=== PATIENT | female | born 1990 | race Caucasian/White ===

== ENCOUNTER 2017-07-23 14:16 | Inpatient (IN) | payer OTHER ==
[2017-07-23] VITALS (20 sets, daily range): BP systolic 109–150; BP diastolic 52–100; PULSE 85–106; RESP 16–18; TEMP 98–98.5
--- NOTE | 2017-07-23 15:34 | PD ---
HPI Chief Complaint VALLEJO, edema Date Seen: Jul 23, 2017 Time Seen: 15:24 Travel History International Travel<30 Days: No Contact w/Intl Traveler<30Days: No Known Affected Area: No History of Present Illness HPI Pt is a zafar 26y/o G1 @ 37.1wks. She has PNC with Dr. Tyson. She presents today with c/o VALLEJO and edema. She reports that she has a h/o HAs prior to and has sporadically had them during. She does not take tylenol b/c she tries to avoid taking anything in . She has had b/l LE edema for "many weeks". It has not worsened. She also states that her BPs have been climbing. Prepreg BP was 90s/60s. Last week she reports completing a 24hr urine collection and labs but ruled out for preE. She states that today her BPs have been 120-140/70-60s. She denies LOF, VB, ctx. +FM. She states that she is scheduled for a 1'cs for macrosomia. Weeks Gestation: 37 Para: 0 : 1 History Past Medical History Medical History: Denies Significant Hx Obstetric History Obstetric History 1. current Past Surgical History Surgical History: No Previous Surgery Family History Family History: Negative Social History Alcohol Use: No Tobacco Use: No Substance Abuse: No Allergies-Medications Narrative Medication none Review of Systems Except as stated in HPI: all other systems reviewed are Neg Physical Exam Vital Signs Date Time Temp Pulse Resp B/P (MAP) Pulse Ox O2 Delivery O2 Flow Rate FiO2 07/23/17 15:15 102 150/83 (105) 07/23/17 15:00 18 07/23/17 15:00 104 136/61 (86) Narrative General: well developed, well nourished, no acute distress HEENT: normocephalic atraumatic, extraocular movements intact, neck supple Abdomen: soft, gravid, nontender, nondistended Uterus: fundus term, EFW 7.5-8lbs Extremities: full range of motion, no clonus, brisk reflexes L>R Skin: normal coloration, no rashes, no suspicious skin lesions noted Neurologic: cranial nerves 2-12 grossly intact, normal muscle tone, normal gait Psychiatric: normal mood and affect, appropriate FHTs: 150s, +accels, no decels, moderate variability, reactive [place]: no ctx Cvx: deferred Data Data Vital Signs Reviewed: Yes Orders Orders Vital Signs (Adult) .ON ADMISSION (07/23/17 15:11) ^ Labor Status (07/23/17 15:11) Urinalysis - C+S If Indicated (07/23/17 15:11) ^ Non Stress Test (07/23/17 15:11) Cbc No Diff, Includes Plts (07/23/17 15:11) Comprehensive Metabolic Panel (07/23/17 15:11) Protein Creat Ratio, Random Ur (07/23/17 15:11) MDM Plan 26y/o G1 @ 37.1wks with elevated BPs -- triage 130-160/70-80s -- PIH labs sent Dispo: await labs but pt likely at least gHTN at term and would warrant delivery; recommend IOL given EFW <5000g Diagnosis Diagnosis: Primary Impression: 37 weeks gestation of Additional Impression: Elevated blood pressure affecting in third trimester, antepartum Checo Beckman MD Jul 23, 2017 15:34
[2017-07-23 15:44] LABS: BACTERIA, URINE MANY /hpf; BILIRUBIN, URINE NEG (NEG); BLOOD, URINE NEG (NEG); GLUCOSE,URINE 300 mg/dL (NEG); KETONE, URINE NEG (NEG); MUCUS URINE FEW /lpf (OCC); NITRITE,URINE NEG (NEG); PH, URINE 6.5 (5.0-8.5); SQUAMOUS EPITHELIAL CELL URINE 11 /hpf (0-5); URINE COLOR YELLOW (YELLW/STRAW); URINE LEUKOCYTE ESTERASE SMALL (NEG)
[2017-07-23 15:47] LABS: HEMATOCRIT 36.1 % (35.0-46.0); HEMOGLOBIN 12.3 GM/DL (11.6-15.3); MEAN CELL VOLUME 85.3 FL (80.0-100.0); MEAN CORPUSCULAR HEMOGLOBIN 29.1 PG (27.0-34.0); MEAN CORPUSCULAR HGB CONC 34.2 % (32.0-36.0); MEAN PLATELET VOLUME 9.3 FL (7.0-11.0); PLATELET COUNT 133 TH/MM3 (150-450); RED BLOOD COUNT 4.24 MIL/MM3 (4.00-5.30); RED CELL DISTRIBUTION WIDTH 13.5 % (11.6-17.2); WHITE BLOOD COUNT 10.2 TH/MM3 (4.0-11.0)
[2017-07-23 16:06] LABS: ALBUMIN 2.4 GM/DL (3.4-5.0); ALT (GPT) 22 U/L (10-53); AST (GOT) 17 U/L (15-37); BICARBONATE 22.5 MEQ/L (21.0-32.0); BLOOD UREA NITROGEN 8 MG/DL (7-18); CALCIUM 8.8 MG/DL (8.5-10.1); CHLORIDE 111 MEQ/L (98-107); CREATININE 0.56 MG/DL (0.50-1.00); GLOMERULAR FILTRATION RATE 130 ML/MIN (>89); GLUCOSE,RANDOM 86 MG/DL (74-106); SODIUM (NA) 142 MEQ/L (136-145)
[2017-07-23 16:08] LABS: ALKALINE PHOSPHATASE 135 U/L (45-117); TOTAL BILIRUBIN ADULT 0.4 MG/DL (0.2-1.0); TOTAL PROTEIN 6.3 GM/DL (6.4-8.2)
[2017-07-23] MEDS ORDERED: ACETAMINOPHEN 325 MG TAB PO ONE (17:00)
[2017-07-23] MEDS ORDERED: LACTATED RINGER'S 1000 ML INJ 1,000 ML IV PRN ×2 (17:03→18:40)
[2017-07-23] MEDS: LACTATED RINGER'S 1000 ML INJ 1,000 ML IV SCH (17:03)
[2017-07-23] MEDS ORDERED: LIDOCAINE HCL 1% 50 ML VIAL I-DERMAL PRN ×2 (17:15→18:45)
[2017-07-23] MEDS ORDERED: CITRIC ACID-SODIUM CITRATE LIQ 30 ML UDC PO SCH ×2 (17:15→18:45)
[2017-07-23] MEDS ORDERED: OXYTOCIN 30 UNITS-500ML PREMIX 500 ML IV ONE ×2 (17:15→18:45)
[2017-07-23] MEDS ORDERED: MINERAL OIL 10 ML VIAL TOPICAL PRN ×2 (17:15→18:45)
[2017-07-23] MEDS ORDERED: LIDOCAINE HCL 1% 50 ML VIAL INFIL PRN ×2 (17:15→18:45)
[2017-07-23] MEDS ORDERED: SODIUM CHLORID 0.9% 500 ML INJ 500 ML IV PRN ×2 (17:15→18:45)
[2017-07-23] MEDS ORDERED: SODIUM CHLOR 0.9% 1000 ML INJ 1,000 ML IV PRN ×2 (17:23→19:00)
[2017-07-23] MEDS ORDERED: PENICILLIN G POTASSIUM INJ 5,000,000 UNITS in SODIUM CHLORIDE 0.9% INJ 100 ML IV ONE (18:00)
[2017-07-23] MEDS ORDERED: LACTATED RINGER'S 1000 ML INJ 1,000 ML IV SCH ×2 (18:40)
[2017-07-23] MEDS ORDERED: ONDANSETRON ODT 4 MG TAB PO PRN (18:45)
[2017-07-23] MEDS ORDERED: CALCIUM GLUCONATE 10% 1 GM/10 ML VIAL IV PUSH PRN (18:45)
[2017-07-23] MEDS ORDERED: ONDANSETRON HCL 4 MG/2 ML VIAL IV PUSH PRN (18:45)
[2017-07-23] MEDS ORDERED: ACETAMINOPHEN 325 MG TAB PO PRN (18:45)
[2017-07-23] MEDS ORDERED: LABETALOL HCL 100 MG/20 ML VIAL IV PUSH PRN ×3 (18:45→19:00)
[2017-07-23] MEDS ORDERED: SODIUM CHLORIDE 0.9% FLUSH 10 ML FLUSH IV FLUSH PRN ×2 (18:45)
[2017-07-23] MEDS ORDERED: DOCUSATE SODIUM 100 MG CAP PO PRN (18:45)
[2017-07-23] MEDS: BETAMETHASONE SOD PHOS/ACETATE SUSP 30 MG/5 ML VIAL IM SCH (20:00)
[2017-07-23] MEDS ORDERED: DINOPROSTONE 10 MG VAG INSERT VAGINAL ONE (20:00)
[2017-07-23] MEDS ORDERED: ZOLPIDEM TARTRATE 5 MG TAB PO PRN (21:00)
[2017-07-23] MEDS ORDERED: SODIUM CHLORIDE 0.9% FLUSH 10 ML FLUSH IV FLUSH SCH ×2 (21:00)
[2017-07-23] MEDS ORDERED: PENICILLIN G POTASSIUM INJ 2,500,000 UNITS in SODIUM CHLORIDE 0.9% INJ 100 ML IV SCH (22:00)
[2017-07-23 22:20] LABS: BASOPHIL % 0.3 % (0.0-2.0); EOSINOPHIL % 0.2 % (0.0-4.0); HEMATOCRIT 35.2 % (35.0-46.0); HEMOGLOBIN 11.8 GM/DL (11.6-15.3); LYMPH % 13.1 % (9.0-44.0); LYMPHOCYTE # 1.5 TH/MM3 (1.0-4.8); MEAN CELL VOLUME 86.6 FL (80.0-100.0); MEAN CORPUSCULAR HEMOGLOBIN 29.1 PG (27.0-34.0); MEAN CORPUSCULAR HGB CONC 33.6 % (32.0-36.0); MEAN PLATELET VOLUME 9.2 FL (7.0-11.0); MONOCYTE # 0.7 TH/MM3 (0-0.9); NEUT % 80.4 % (16.0-70.0); PLATELET COUNT 120 TH/MM3 (150-450); RED BLOOD COUNT 4.06 MIL/MM3 (4.00-5.30); RED CELL DISTRIBUTION WIDTH 13.5 % (11.6-17.2); WHITE BLOOD COUNT 11.2 TH/MM3 (4.0-11.0)
[2017-07-23 22:47] LABS: ALBUMIN 2.4 GM/DL (3.4-5.0); AST (GOT) 16 U/L (15-37); BLOOD UREA NITROGEN 8 MG/DL (7-18); CALCIUM 9.1 MG/DL (8.5-10.1); CHLORIDE 110 MEQ/L (98-107); CREATININE 0.57 MG/DL (0.50-1.00); GLOMERULAR FILTRATION RATE 127 ML/MIN (>89); GLUCOSE,RANDOM 104 MG/DL (74-106); SODIUM (NA) 140 MEQ/L (136-145)
[2017-07-23 22:48] LABS: ALT (GPT) 24 U/L (10-53)
[2017-07-23 22:50] LABS: ALKALINE PHOSPHATASE 135 U/L (45-117); TOTAL BILIRUBIN ADULT 0.5 MG/DL (0.2-1.0); TOTAL PROTEIN 6.2 GM/DL (6.4-8.2)
[2017-07-24] VITALS (41 sets, daily range): BP systolic 109–152; BP diastolic 56–93; PULSE 66–157; RESP 16–20; TEMP 97.9–98.8
[2017-07-24 05:56] LABS: HEMATOCRIT 33.6 % (35.0-46.0); HEMOGLOBIN 11.2 GM/DL (11.6-15.3); MEAN CELL VOLUME 87.2 FL (80.0-100.0); MEAN CORPUSCULAR HEMOGLOBIN 29.1 PG (27.0-34.0); MEAN CORPUSCULAR HGB CONC 33.4 % (32.0-36.0); MEAN PLATELET VOLUME 9.2 FL (7.0-11.0); PLATELET COUNT 107 TH/MM3 (150-450); RED BLOOD COUNT 3.85 MIL/MM3 (4.00-5.30); RED CELL DISTRIBUTION WIDTH 13.5 % (11.6-17.2); WHITE BLOOD COUNT 9.2 TH/MM3 (4.0-11.0)
[2017-07-24 06:23] LABS: ALBUMIN 2.2 GM/DL (3.4-5.0); AST (GOT) 16 U/L (15-37); BLOOD UREA NITROGEN 8 MG/DL (7-18); CALCIUM 8.4 MG/DL (8.5-10.1); CREATININE 0.45 MG/DL (0.50-1.00); GLOMERULAR FILTRATION RATE 167 ML/MIN (>89); GLUCOSE,RANDOM 76 MG/DL (74-106)
[2017-07-24 06:24] LABS: BICARBONATE 23.2 MEQ/L (21.0-32.0); CHLORIDE 111 MEQ/L (98-107); SODIUM (NA) 142 MEQ/L (136-145)
[2017-07-24 06:27] LABS: ALKALINE PHOSPHATASE 120 U/L (45-117); ALT (GPT) 21 U/L (10-53); TOTAL BILIRUBIN ADULT 0.5 MG/DL (0.2-1.0); TOTAL PROTEIN 5.7 GM/DL (6.4-8.2)
--- NOTE | 2017-07-24 08:02 | PD.LABORPN ---
Subjective Subjective Mild cramping from the cervidil placement of cervidil was extremely painful and was removal today Objective Vital Signs Vital Signs Date Time Temp Pulse Resp B/P (MAP) Pulse Ox O2 Delivery O2 Flow Rate FiO2 07/24/17 07:23 97.9 07/24/17 07:23 16 07/24/17 07:22 84 152/83 (106) 07/24/17 07:00 78 132/72 (92) 07/24/17 06:15 16 07/24/17 06:00 79 130/71 (90) 07/24/17 05:15 16 07/24/17 05:00 66 130/70 (90) 07/24/17 04:00 72 109/56 (73) 07/24/17 03:00 70 114/59 (77) 07/24/17 02:15 16 07/24/17 02:00 87 125/74 (91) 07/24/17 01:00 80 113/66 (82) 07/24/17 00:15 18 07/24/17 00:00 79 119/65 (83) Objective not in the pelvis ROGERS developed cervix 80%/ft/-3 very painful to examine EFW 8+ pounds pelvis not yet proven Weeks Gestation: 37 Gest Age Assessed Date: Jul 24, 2017 Pt started active labor?: No Medical induction of labor?: Yes Medical induction start date: Jul 24, 2017 Medical induction start time: 07:59 Artificial rupture of membrane: No Assessment/Plan Problem List: (1) 37 weeks gestation of ICD Codes: Z3A.37 - 37 weeks gestation of Status: Acute (2) Elevated blood pressure affecting in third trimester, antepartum ICD Codes: O16.3 - Unspecified maternal hypertension, third trimester Status: Acute Assessment and Plan cervical ripening and induction for elevated blood pressures suspected macrosomia no gestational diabetes neither parent was macrosomic had primary section scheduled in [address] Tyson We reviewed induction and working toward vaginal delivery as ultrasounds can be off on weight. However clinically her fundus is 42 and the has not entered pelvis from above. If he cannot enter pelvis from above, he cannot come out from below. will proceed with pitocin but watch for lack of descent and evaluate accordingly. Radha Burleson MD Jul 24, 2017 08:02
[2017-07-24] MEDS ORDERED: OXYTOCIN 30 UNITS-500ML PREMIX 500 ML IV PRN ×3 (08:15→08:30)
[2017-07-24] MEDS ORDERED: MULTIVIT/MIN/PREN/FOL AC/IRON PRENATAL TAB PO SCH (09:00)
[2017-07-24] MEDS: LACTATED RINGER'S 1000 ML INJ 1,000 ML IV SCH (12:40)
[2017-07-24] MEDS ORDERED: MISOPROSTOL 100 MCG TAB PO SCH (18:00)
[2017-07-24] MEDS: MISOPROSTOL 25 MCG TAB PO SCH ×2 (19:04→23:02)
[2017-07-24] MEDS: BETAMETHASONE SOD PHOS/ACETATE SUSP 30 MG/5 ML VIAL IM SCH (20:00)
[2017-07-24] MEDS ORDERED: ZOLPIDEM TARTRATE 5 MG TAB PO ONE (21:00)
[2017-07-25] VITALS (10 sets, daily range): BP systolic 117–146; BP diastolic 69–89; PULSE 72–98; RESP 16–18; TEMP 97.8–98.1; O2SAT 95–96
[2017-07-25] MEDS: LACTATED RINGER'S 1000 ML INJ 1,000 ML IV SCH ×2 (01:24→07:27)
[2017-07-25 08:16] LABS: AUTOMATED NEUTROPHIL # 8.6 TH/MM3 (1.8-7.7); BASOPHIL % 0.2 % (0.0-2.0); EOSINOPHIL % 0.1 % (0.0-4.0); HEMATOCRIT 35.4 % (35.0-46.0); LYMPH % 12.8 % (9.0-44.0); LYMPHOCYTE # 1.4 TH/MM3 (1.0-4.8); MEAN CORPUSCULAR HEMOGLOBIN 29.2 PG (27.0-34.0); MEAN PLATELET VOLUME 9.1 FL (7.0-11.0); MONO % 6.4 % (0.0-8.0); MONOCYTE # 0.7 TH/MM3 (0-0.9); NEUT % 80.5 % (16.0-70.0); PLATELET COUNT 126 TH/MM3 (150-450); RED BLOOD COUNT 4.12 MIL/MM3 (4.00-5.30); RED CELL DISTRIBUTION WIDTH 13.6 % (11.6-17.2); WHITE BLOOD COUNT 10.6 TH/MM3 (4.0-11.0)
[2017-07-25 08:36] LABS: ALBUMIN 2.2 GM/DL (3.4-5.0); DIRECT BILIRUBIN ADULT 0.1 MG/DL (0.0-0.2)
[2017-07-25 08:38] LABS: INDIRECT BILIRUBIN 0.5 MG/DL (0.0-0.8); TOTAL BILIRUBIN ADULT 0.6 MG/DL (0.2-1.0); TOTAL PROTEIN 5.7 GM/DL (6.4-8.2)
[2017-07-25] MEDS ORDERED: LACTATED RINGER'S 1000 ML IV SCH (09:45)
[2017-07-25] MEDS ORDERED: LACTATED RINGER'S 1000 ML IV ONE (09:45)
[2017-07-25] MEDS ORDERED: CEFAZOLIN INJ 2,000 MG in SODIUM CHLORIDE 0.9% INJ 100 ML IV SCH (09:45)
[2017-07-25] MEDS ORDERED: CITRIC ACID-SODIUM CITRATE LIQ 30 ML UDC PO SCH (09:45)
[2017-07-25] MEDS ORDERED: ACETAMINOPHEN 1000 MG/100 ML 100 ML IV ONE (10:43)
[2017-07-25] MEDS ORDERED: MORPHINE SULFATE PF 5 MG/10 ML VIAL ONE (10:43)
[2017-07-25] MEDS ORDERED: DEXAMETHASONE SOD PHOS 4 MG/ML VIAL IV ONE (12:00)
[2017-07-25] MEDS ORDERED: ONDANSETRON HCL 4 MG/2 ML VIAL IV ONE (12:00)
[2017-07-25] MEDS ORDERED: OXYTOCIN 10 UNIT/ML AMP IV ONE (12:00)
[2017-07-25] MEDS ORDERED: LACTATED RINGER'S 1000 ML INJ 1,000 ML IV ONE (12:00)
[2017-07-25] MEDS ORDERED: KETOROLAC TROMETHAMINE 30 MG/ML (IVP) VIAL IV PUSH ONE (12:00)
--- NOTE | 2017-07-25 14:14 | MP ---
cc: Yogesh Morocho MD DATE OF OPERATION: 07/25/2017 DATE OF OPERATION: 07/25/2017 PREOPERATIVE DIAGNOSES: 1. Intrauterine at 37 weeks. 2. Atypical preeclampsia. 3. Inability to tolerate labor, remote from delivery. POSTOPERATIVE DIAGNOSES: 1. Intrauterine at 37 weeks. 2. Atypical preeclampsia. 3. Inability to tolerate labor, remote from delivery. PROCEDURE PERFORMED: Primary low transverse section. ANESTHESIA: Spinal. SURGEON: Yogesh Morocho MD FINDINGS: Normal uterus for . A beautiful female infant, Apgars 9 and 9, weight 8 pounds 9 ounces. Normal tubes, normal ovaries, and normal posterior cul-de-sac. COMPLICATIONS: None. COUNTS: Correct. ESTIMATED BLOOD LOSS: 600 mL. FLUIDS: Crystalloids. CONDITION: The patient tolerated the procedure well, went to the recovery room in good condition. INDICATION FOR PROCEDURE: This is a patient who came in with atypical preeclampsia with low platelets and we decided to induce because of the preeclampsia. Because her cervix was not ripe, we tried to do cervical ripening and the morning of surgery, she began having episodic late decelerations. The labor nurse called me. We reviewed the strip at 4:00 a.m. It had normalized and I told her not to give any more Cytotec, let the baby rest, let her sleep, as well as the strip looked good, we could do it in the morning. We rechecked her platelets because they were somewhat low and falling, they were normal and we decided to proceed with the surgery this morning. DESCRIPTION OF PROCEDURE: Under an adequate level of anesthesia, she was prepped and draped for abdominal surgery. A Pfannenstiel incision was made and carried down to the fascia. The fascia was taken off the rectus muscle by blunt and sharp dissection. The rectus muscles were spread bluntly and the peritoneum was entered under direct vision without difficulty. The incision was extended with care to avoid the urinary bladder. A bladder blade was placed and a bladder flap created in the usual fashion. The uterine incision was made in a transverse manner along the lower uterine segment which was not well-developed. It was taken down in the midline until the intrauterine cavity was entered. A large amount of clear fluid was noted. The vertex was grasped with a suction cup and delivered. The hypopharynx and nasopharynx were suctioned and the remainder of the delivered without difficulty. The cord was doubly clamped and cut and the infant handed to the resuscitation team present. The placenta was then delivered manually. The uterus was curettaged twice with a wet lap and irrigated with a large amount of fluid. The uterine incision was then repaired with 2-0 Vicryl in a running locking fashion, with the second layer imbricating the first. Hemostasis was excellent. The cul-de-sac and gutters were cleaned of blood and debris. The uterus was delivered back into the abdomen. The rectus muscles were reapproximated with 0 Vicryl in interrupted fashion. The fascia was repaired from lateral to midline with 0 Vicryl and the subcu was repaired with 3-0 Vicryl. The skin was repaired with a 4-0 Vicryl in a subcuticular manner. The wound was sterilely dressed. She tolerated the procedure well and went to the recovery room in satisfactory condition. R. Tyler Morocho MD RJV/KIN , 02:01 PM , 02:13 PM
[2017-07-25] MEDS ORDERED: oxyCODONE/ACETAMINOPHEN 5 MG/325 MG TAB PO PRN (16:15)
[2017-07-25] MEDS ORDERED: OXYTOCIN 30 UNITS-500ML PREMIX 500 ML IV ONE (16:15)
[2017-07-25] MEDS ORDERED: SODIUM CHLORIDE 0.9% FLUSH 10 ML FLUSH IV FLUSH PRN (16:15)
[2017-07-25] MEDS ORDERED: ACETAMINOPHEN 325 MG TAB PO PRN (16:15)
[2017-07-25] MEDS ORDERED: ZOLPIDEM TARTRATE 5 MG TAB PO PRN (16:15)
[2017-07-25] MEDS ORDERED: SODIUM CHLORIDE 0.9% FLUSH 10 ML FLUSH IV FLUSH SCH (21:00)
[2017-07-25] MEDS ORDERED: LACTATED RINGER'S 1000 ML INJ 1,000 ML IV SCH (21:01)
[2017-07-25] MEDS ORDERED: OXYTOCIN 30 UNITS-500ML PREMIX 500 ML IV PRN (21:15)
[2017-07-25] MEDS: IBUPROFEN 600 MG TAB PO PRN (22:19)
[2017-07-26 04:00] VITALS: BP 110/77; PULSE 68; RESP 16; TEMP 98; O2SAT 99
[2017-07-26 07:40] VITALS: BP 128/80; PULSE 81; RESP 16; TEMP 98
[2017-07-26 07:50] VITALS: BP 128/80; PULSE 81; RESP 16; TEMP 98
[2017-07-26] MEDS: oxyCODONE/ACETAMINOPHEN 5 MG/325 MG TAB PO PRN ×3 (07:55→21:38)
[2017-07-26 08:45] LABS: AUTOMATED NEUTROPHIL # 9.6 TH/MM3 (1.8-7.7); BASOPHIL % 0.2 % (0.0-2.0); EOSINOPHIL % 0.2 % (0.0-4.0); HEMATOCRIT 30.3 % (35.0-46.0); HEMOGLOBIN 10.1 GM/DL (11.6-15.3); LYMPHOCYTE # 1.7 TH/MM3 (1.0-4.8); MEAN CELL VOLUME 87.2 FL (80.0-100.0); MEAN CORPUSCULAR HEMOGLOBIN 29.1 PG (27.0-34.0); MEAN CORPUSCULAR HGB CONC 33.4 % (32.0-36.0); MEAN PLATELET VOLUME 9.3 FL (7.0-11.0); MONO % 7.4 % (0.0-8.0); MONOCYTE # 0.9 TH/MM3 (0-0.9); NEUT % 78.2 % (16.0-70.0); PLATELET COUNT 114 TH/MM3 (150-450); RED BLOOD COUNT 3.47 MIL/MM3 (4.00-5.30); RED CELL DISTRIBUTION WIDTH 13.6 % (11.6-17.2); WHITE BLOOD COUNT 12.2 TH/MM3 (4.0-11.0)
--- NOTE | 2017-07-26 10:48 | HHI.OB ---
Subjective Post Operative Day: 1 Remarks Doing well, Pain well controlled baby is good Bleeding is normal Objective Vitals/I&O Vital Signs Date Time Temp Pulse Resp B/P (MAP) Pulse Ox O2 Delivery O2 Flow Rate FiO2 07/26/17 07:50 98.0 81 16 07/26/17 07:50 128/80 (96) 07/26/17 07:40 98.0 81 07/26/17 07:40 128/80 (96) 07/26/17 07:40 16 07/26/17 04:00 98.0 68 16 110/77 (88) 99 07/25/17 23:52 98.0 98 18 120/78 (92) 96 07/25/17 20:00 98.0 79 18 117/69 (85) 95 07/25/17 18:00 78 16 143/86 (105) 07/25/17 13:55 72 18 146/89 (108) 07/25/17 13:55 98.1 Result Diagram: 07/26/17 0725 07/24/17 0449 Objective Remarks GENERAL: Well-nourished, well-developed patient. CARDIOVASCULAR: Regular rate and rhythm without murmurs, gallops, or rubs. RESPIRATORY: Breath sounds equal bilaterally. No accessory muscle use. ABDOMEN/GI: Abdomen soft, non-tender, bowel sounds present. Incision: Clean, dry and intact. Fundus: Firm, non-tender at umbilicus. GENITOURINARY: Light to moderate bleeding. EXTREMITIES: No cyanosis or edema, non-tender, without signs of DVT. Medications and IVs Current Medications Medications (Trade) Dose Ordered Sig/Prachi Route Start Time Stop Time Status Last Admin Lactated Ringer's 1,000 ml @ 100 mls/hr Q10H IV 07/25/17 21:01 07/26/17 17:00 Oxytocin 500 ml @ 100 mls/hr UNSCH X1 PRN IV 07/25/17 21:15 07/26/17 21:14 (NS Flush) 2 ml BID IV FLUSH 07/25/17 21:00 (NS Flush) 2 ml UNSCH PRN IV FLUSH 07/25/17 16:15 (Tylenol) 650 mg Q6H PRN PO 07/25/17 16:15 (Motrin) 600 mg Q6H PRN PO 07/25/17 16:15 07/25/17 22:19 (Percocet 5-325 Mg) 1 tab Q4H PRN PO 07/25/17 16:15 07/25/17 23:14 (Percocet 5-325 Mg) 2 tab Q4H PRN PO 07/25/17 16:15 07/26/17 07:55 (Ambien) 5 mg HS PRN PO 07/25/17 16:15 (M-M-R Ii Inj) 0.5 ml ONCE ONCE SQ 07/26/17 16:00 07/26/17 16:01 (Boostrix Inj) 0.5 ml ONCE ONCE IM 07/26/17 16:00 07/26/17 16:01 07/25/17 23:15 Assessment/Plan Problem List: (1) 37 weeks gestation of ICD Codes: Z3A.37 - 37 weeks gestation of Status: Acute (2) Elevated blood pressure affecting in third trimester, antepartum ICD Codes: O16.3 - Unspecified maternal hypertension, third trimester Status: Acute Assessment and Plan P0D #1 Preeclampsia BPs look good Anemia start fe after done with the percocet is done Routine care Yogesh Morocho MD Jul 26, 2017 10:48
[2017-07-26] MEDS ORDERED: IBUP-232 PO (10:50)
[2017-07-26] MEDS ORDERED: OXYC1TAB63 PO (10:50)
--- NOTE | 2017-07-26 10:51 | HHI.DCPOC ---
Discharge Care Plan Diagnosis: (1) Anemia (2) Preeclampsia (3) 37 weeks gestation of (4) Elevated blood pressure affecting in third trimester, antepartum Report Symptoms to Your Doctor -Temperature above 100.5 degrees -Redness, of incision or excessive or foul smelling drainage -Unusual pain or calf pain -Increased vaginal bleeding -Painful or difficulty urinating -Feelings of extreme sadness or anxiety after 2 weeks Goals to Promote Your Health * To prevent worsening of your condition and complications * To maintain your health at the optimal level Directions to Meet Your Goals Take your medications as prescribed Follow your dietary instruction Follow activity as directed Ensure plenty of rest for recovery Drink fluids for hydration Keep your appointments as scheduled Take your immunizations and boosters as scheduled If your symptoms worsen call your PCP, if no PCP go to Urgent Care Center or Emergency Room Smoking is Dangerous to Your Health. Avoid second hand smoke Call the 24-hour crisis hotline for domestic abuse at Yogesh Morocho MD Jul 26, 2017 10:51
[2017-07-26] MEDS: IBUPROFEN 600 MG TAB PO PRN ×2 (12:04→21:37)
[2017-07-26] MEDS ORDERED: DIPHTH/TETANUS/ACEL PERTUSSIS (BOOSTER) 0.5 ML VIAL/PFS IM ONE (16:00)
[2017-07-26] MEDS ORDERED: MEASLES, MUMPS, RUBELLA VACCINE 0.5 ML VIAL SQ ONE (16:00)
[2017-07-26 20:30] VITALS: BP 138/87; PULSE 98; RESP 16; TEMP 98.6; O2SAT 98
--- NOTE | 2017-07-27 07:58 | HHI.OB ---
Subjective Post Operative Day: 2 Remarks doing well,+BM, ready for discharge, pt states Dr Morocho already checked her incision today Objective Vitals/I&O Vital Signs Date Time Temp Pulse Resp B/P (MAP) Pulse Ox O2 Delivery O2 Flow Rate FiO2 07/26/17 20:30 98 16 138/87 (104) 98 07/26/17 20:30 98.6 Result Diagram: 07/26/17 0725 07/24/17 0449 Objective Remarks GENERAL: Well-nourished, well-developed patient. CARDIOVASCULAR: Regular rate and rhythm without murmurs, gallops, or rubs. RESPIRATORY: Breath sounds equal bilaterally. No accessory muscle use. ABDOMEN/GI: Abdomen soft, non-tender, bowel sounds present. Incision: Clean, dry and intact. Fundus: Firm, non-tender at umbilicus. GENITOURINARY: Light to moderate bleeding. EXTREMITIES: No cyanosis or edema, non-tender, without signs of DVT. Medications and IVs Current Medications Medications (Trade) Dose Ordered Sig/Prachi Route Start Time Stop Time Status Last Admin (NS Flush) 2 ml BID IV FLUSH 07/25/17 21:00 (NS Flush) 2 ml UNSCH PRN IV FLUSH 07/25/17 16:15 (Tylenol) 650 mg Q6H PRN PO 07/25/17 16:15 (Motrin) 600 mg Q6H PRN PO 07/25/17 16:15 07/26/17 21:37 (Percocet 5-325 Mg) 1 tab Q4H PRN PO 07/25/17 16:15 07/25/17 23:14 (Percocet 5-325 Mg) 2 tab Q4H PRN PO 07/25/17 16:15 07/26/17 21:38 (Ambien) 5 mg HS PRN PO 07/25/17 16:15 Assessment/Plan Problem List: (1) 37 weeks gestation of ICD Codes: Z3A.37 - 37 weeks gestation of Status: Acute (2) Elevated blood pressure affecting in third trimester, antepartum ICD Codes: O16.3 - Unspecified maternal hypertension, third trimester Status: Acute Assessment and Plan P0D #2 Preeclampsia BPs look good Anemia start fe after done with the percocet Routine care Discharge Planning routine Attending Attestation pt seen by Krystal Rondon MD Jul 27, 2017 07:58
[2017-07-27] MEDS: IBUPROFEN 600 MG TAB PO PRN (08:59)
[2017-07-27] MEDS: oxyCODONE/ACETAMINOPHEN 5 MG/325 MG TAB PO PRN (08:59)
[2017-07-27 09:10] VITALS: BP 133/86; PULSE 91; RESP 20; TEMP 98
== END 2017-07-27 13:00 | disposition home or self-care (01) | DRG 766 ==
LOC: HOBED 14:16 → H2EA 17:09 → H1EA 07-25 13:47
PROVIDERS: ADMIT Obstetrics & Gynecology; ATTEND Obstetrics & Gynecology
PROC: 10D00Z1 Extraction of Products of Conception, Low, Open Approach (ICD-10-PCS; principal; 2017-07-25)
DX: O14.94 Unspecified pre-eclampsia, complicating childbirth (principal); D64.9 Anemia, unspecified; O99.02 Anemia complicating childbirth; Z3A.37 37 weeks gestation of pregnancy; Z37.0 Single live birth
CPT/HCPCS: 36415; 59025; 76816; 76819; 80053; 80076; 80307; 81001; 82570; 84112; 84156; 84550; 85025; 85027; 86850; 86900; 86901; 87086; 90715; J0131; J0690; J1100; J1885; J2274; J2405; J2540; J2590; J7120

== ENCOUNTER 2017-07-31 11:49 | Inpatient (IN) | payer OTHER ==
[~2017-07-31] VITALS: Ht 162.6 cm; Wt 83.0 kg
[2017-07-31] VITALS (24 sets, daily range): BP systolic 106–147; BP diastolic 60–96; PULSE 83–110; RESP 14–18; TEMP 98; O2SAT 99
[~2017-07-31 11:49] MED LIST: IBUP-232 PO; OXYC1TAB63 PO
[2017-07-31] MEDS ORDERED: NIFEdipine 10 MG CAP ONE ×2 (14:12→14:45)
[2017-07-31] MEDS ORDERED: SODIUM CHLORIDE 0.9% FLUSH 10 ML FLUSH IV FLUSH PRN ×2 (14:15→15:15)
[2017-07-31] MEDS ORDERED: NIFEdipine 10 MG CAP PO PRN ×4 (14:15→15:45)
[2017-07-31] MEDS ORDERED: ACETAMINOPHEN 325 MG TAB PO PRN ×2 (14:15→15:15)
[2017-07-31] MEDS ORDERED: ALUMINUM/MAGNESIUM/SIMETH 30 ML CUP PO PRN (14:15)
[2017-07-31] MEDS ORDERED: ONDANSETRON HCL 4 MG/2 ML VIAL IV PUSH PRN ×2 (14:15→15:15)
[2017-07-31] MEDS ORDERED: MAGNESIUM SULFATE 4 GM PREMIX 100 ML IV ONE (14:15)
[2017-07-31] MEDS ORDERED: ONDANSETRON ODT 4 MG TAB PO PRN (14:15)
[2017-07-31] MEDS ORDERED: LABETALOL HCL 100 MG/20 ML VIAL IV PUSH PRN ×2 (14:15→14:30)
[2017-07-31] MEDS ORDERED: CALCIUM GLUCONATE 10% 1 GM/10 ML VIAL IV PUSH PRN (14:15)
--- NOTE | 2017-07-31 14:30 | PD ---
HPI Chief Complaint Elevated BPs Date Seen: Jul 31, 2017 Time Seen: 14:13 Travel History International Travel<30 Days: No Contact w/Intl Traveler<30Days: No History of Present Illness HPI Patient is a 26 year old who is 6 days post- who presents with elevated BPs and worsening LE swelling. She is s/p primary CS after failed IOL at 37 weeks for pre-eclampsia. She had mild headache this morning, sick contacts /SOB/calf pain/dizziness/seeing spots. OB care is with Dr. Tyson. History Past Medical History Medical History: Denies Significant Hx Obstetric History Obstetric History Past Surgical History Narrative Surgical primary CS 6 days ago Surgical History: No Previous Surgery Family History Family History: Negative Social History Alcohol Use: No Tobacco Use: No Substance Abuse: No Allergies-Medications (Allergen,Severity, Reaction): Coded Allergies: No Known Allergies (Unverified , 07/23/17) Home Meds Active Scripts Oxycodone HCl/Acetaminophen (Oxycodone-Acetaminophen 5-325) 5 Mg-325 Mg Tablet, 1-2 TAB PO Q4H Y for moderate pain, #30 TAB Prov:Yogesh Morocho MD 07/26/17 Ibuprofen (Ibuprofen) 600 Mg Tab, 600 MG PO Q6H Y for CRAMPING, #30 TAB Prov:Yogesh Morocho MD 07/26/17 Review of Systems General / Constitutional: No: Fever, Chills Eyes: No: Blurred Vision, Visual changes HENT: No: Headaches Cardiovascular: No: Chest Pain or Discomfort, Palpitations Respiratory: No: Cough, Short of Breath Gastrointestinal: No: Nausea, Vomiting, Diarrhea, Abdominal Pain Genitourinary: No: Urgency, Dysuria Musculoskeletal: Edema, No: Weakness Skin: No Rash, No Dryness Neurologic: No: Weakness, Syncope Psychiatric: No: Anxiety, Depression Endocrine: No: Polydipsia, Polyuria Hematologic/Lymphatic: No Easy Bruising, No Lymph Node Enlargement Physical Exam Vital Signs Date Time Temp Pulse Resp B/P (MAP) Pulse Ox O2 Delivery O2 Flow Rate FiO2 07/31/17 12:18 87 144/78 (100) Narrative GENERAL: Well-nourished, well-developed patient. SKIN: Warm and dry. HEAD: Normocephalic and atraumatic. EYES: No scleral icterus. No injection or drainage. ENT: No nasal drainage noted. Mucous membranes pink. Airway patent. NECK: Supple, trachea midline. No JVD. CARDIOVASCULAR: Regular rate and rhythm without murmurs, gallops, or rubs. RESPIRATORY: Breath sounds equal bilaterally. No accessory muscle use. ABDOMEN/GI: Abdomen soft, non-tender, bowel sounds present, no rebound, no guarding. GENITOURINARY: deferred EXTREMITIES: No cyanosis. Significant tense edema 2+ to thighs, 3+ patellar reflexes, 1 beat clonus. BACK: Nontender without obvious deformity. No CVA tenderness. NEUROLOGICAL: Awake and alert. Motor and sensory grossly within normal limits. Five out of 5 muscle strength in all muscle groups. Normal speech. Data Data Vital Signs Reviewed: Yes Orders Orders Vital Signs (Adult) .ON ADMISSION (07/31/17 12:18) ^ Labor Status (07/31/17 12:18) ^ Non Stress Test (07/31/17 12:18) ^ Hydration (07/31/17 12:18) MDM Medical Record Reviewed: Yes Narrative Course / MDM 26 year old female day # 6 presenting with elevated BPs. Not previously receiving magnesium and symptoms suggestive of severe PreE. Gestational hypertension: Antepartum admission Blood pressures elevated to 170s/90s CBC, CMP, coag, urinalysis, uric acid, urine prot/creat pending Procardia 10 mg by mouth x 1, monitor response, proceed with protocol for HTN in Start magnesium 4mg load, with 2mg/hr IVF, Alvarez per protocol Monitor closely Case discussed with Dr. Gustafson who recommended above-noted plan. DW Dr. Beckman who agrees with plan of care. Plan Admit Ana Price MD R2 Jul 31, 2017 14:30
--- NOTE | 2017-07-31 14:35 | HHI.HP ---
HPI Chief Complaint Severe PreE Date Seen: Jul 31, 2017 Time Seen: 14:30 Travel History International Travel<30 Days: No Contact w/Intl Traveler<30Days: No History of Present Illness HPI Patient is a 26 year old who is 6 days post- who presents with elevated BPs and worsening LE swelling. She is s/p primary CS after failed IOL at 37 weeks for pre-eclampsia. She had mild headache this morning, sick contacts /SOB/calf pain/dizziness/seeing spots. OB care is with Dr. Tyson. History Past Medical History Medical History: Denies Significant Hx Obstetric History Obstetric History PreE induced at 37 weeks Failed IOL, Primary CS uncomplicated Past Surgical History Narrative Surgical CS Family History Family History: Negative Social History Alcohol Use: No Tobacco Use: No Substance Abuse: No Allergies-Medications (Allergen,Severity, Reaction): Coded Allergies: No Known Allergies (Unverified , 07/23/17) Home Meds Active Scripts Oxycodone HCl/Acetaminophen (Oxycodone-Acetaminophen 5-325) 5 Mg-325 Mg Tablet, 1-2 TAB PO Q4H Y for moderate pain, #30 TAB Prov:Yogesh Morocho MD 07/26/17 Ibuprofen (Ibuprofen) 600 Mg Tab, 600 MG PO Q6H Y for CRAMPING, #30 TAB Prov:Yogesh Morocho MD 07/26/17 Review of Systems General / Constitutional: No: Fever, Chills Eyes: No: Blurred Vision, Visual changes HENT: No: Headaches, Vertigo Cardiovascular: No: Chest Pain or Discomfort, Palpitations Respiratory: No: Cough, Short of Breath Gastrointestinal: No: Nausea, Vomiting, Diarrhea, Abdominal Pain Genitourinary: No: Urgency, Dysuria Musculoskeletal: No: Weakness, Edema Skin: No Rash, No Itching Neurologic: No: Weakness, Syncope Psychiatric: No: Anxiety, Depression Physical Exam Vital Signs Date Time Temp Pulse Resp B/P (MAP) Pulse Ox O2 Delivery O2 Flow Rate FiO2 07/31/17 12:18 87 144/78 (100) Narrative GENERAL: Well-nourished, well-developed patient. SKIN: Warm and dry. HEAD: Normocephalic and atraumatic. EYES: No scleral icterus. No injection or drainage. ENT: No nasal drainage noted. Mucous membranes pink. Airway patent. NECK: Supple, trachea midline. No JVD. CARDIOVASCULAR: Regular rate and rhythm without murmurs, gallops, or rubs. RESPIRATORY: Breath sounds equal bilaterally. No accessory muscle use. ABDOMEN/GI: Abdomen soft, non-tender, bowel sounds present, no rebound, no guarding. GENITOURINARY: deferred EXTREMITIES: No cyanosis. Significant tense edema 2+ to thighs, 3+ patellar reflexes, 1 beat clonus. BACK: Nontender without obvious deformity. No CVA tenderness. NEUROLOGICAL: Awake and alert. Motor and sensory grossly within normal limits. Five out of 5 muscle strength in all muscle groups. Normal speech. Caprini VTE Risk Assessment Caprini VTE Risk Assessment: Mod/High Risk (score >= 2) VTE [facility] Contraindication: Patient refusal Caprini Risk Assessment Model Point Value = 1 Point Value = 2 Point Value = 3 Point Value = 5 Age 41-60 Minor surgery BMI > 25 kg/m2 Swollen legs Varicose veins or History of unexplained or recurrent spontaneous Oral contraceptives or hormone replacement Sepsis (< 1 month) Serious lung disease, including pneumonia (< 1 month) Abnormal pulmonary function Acute myocardial infarction Congestive heart failure (< 1 month) History of inflammatory bowel disease Medical patient at bed rest Age 61-74 Arthroscopic surgery Major open surgery (> 45 min) Laparoscopic surgery (> 45 min) Malignancy Confined to bed (> 72 hours) Immobilizing plaster cast Central venous access Age >= 75 History of VTE Family history of VTE Factor V Leiden Prothrombin [id number] Lupus anticoagulant Anticardiolipin antibodies Elevated serum homocysteine Heparin-induced thrombocytopenia Other congenital or acquired thrombophilia Stroke (< 1 month) Elective arthroplasty Hip, pelvis, or leg fracture Acute spinal cord injury (< 1 month) Prophylaxis Regimen Total Risk Factor Score Risk Level Prophylaxis Regimen 0-1 Low Early ambulation 2 Moderate Order ONE of the following: *Sequential Compression Device (SCD) *Heparin 5000 units SQ BID 3-4 Higher Order ONE of the following medications: *Heparin 5000 units SQ TID *Enoxaparin/Lovenox 40 mg SQ daily (WT < 150 kg, CrCl > 30 mL/min) *Enoxaparin/Lovenox 30 mg SQ daily (WT < 150 kg, CrCl > 10-29 mL/min) *Enoxaparin/Lovenox 30 mg SQ BID (WT < 150 kg, CrCl > 30 mL/min) AND/OR *Sequential Compression Device (SCD) 5 or more Highest Order ONE of the following medications: *Heparin 5000 units SQ TID (Preferred with Epidurals) *Enoxaparin/Lovenox 40 mg SQ daily (WT < 150 kg, CrCl > 30 mL/min) *Enoxaparin/Lovenox 30 mg SQ daily (WT < 150 kg, CrCl > 10-29 mL/min) *Enoxaparin/Lovenox 30 mg SQ BID (WT < 150 kg, CrCl > 30 mL/min) AND *Sequential Compression Device (SCD) Data Data Vital Signs Reviewed: Yes Orders Orders Vital Signs (Adult) .ON ADMISSION (07/31/17 12:18) ^ Labor Status (07/31/17 12:18) ^ Non Stress Test (07/31/17 12:18) ^ Hydration (07/31/17 12:18) Assessment/Plan Assessment and Plan 26 year old female day #6 presenting with elevated BPs. Not previously receiving magnesium and symptoms suggestive of severe PreE. Gestational hypertension: Antepartum admission Blood pressures elevated to 170s/90s CBC, CMP, coag, urinalysis, uric acid, urine prot/creat pending Procardia 10 mg by mouth x 1, monitor response, proceed with protocol for HTN in Start magnesium 4mg load, with 2mg/hr IVF, Alvarez per protocol Monitor closely Case discussed with Dr. Gustafson who recommended above-noted plan. AUBREY Beckman who agrees with plan of care. Plan: Admit Discharge Planning Discharge in 1-2 days Ana Price MD R2 Jul 31, 2017 14:35
[2017-07-31 14:43] LABS: BASOPHIL # 0.1 TH/MM3 (0-0.2); BASOPHIL % 0.6 % (0.0-2.0); EOSINOPHIL # 0.1 TH/MM3 (0-0.4); EOSINOPHIL % 0.8 % (0.0-4.0); HEMATOCRIT 32.3 % (35.0-46.0); HEMOGLOBIN 10.7 GM/DL (11.6-15.3); LYMPHOCYTE # 1.5 TH/MM3 (1.0-4.8); MEAN CELL VOLUME 87.4 FL (80.0-100.0); MEAN CORPUSCULAR HGB CONC 33.2 % (32.0-36.0); MEAN PLATELET VOLUME 8.1 FL (7.0-11.0); MONO % 5.6 % (0.0-8.0); MONOCYTE # 0.5 TH/MM3 (0-0.9); PLATELET COUNT 182 TH/MM3 (150-450); RED CELL DISTRIBUTION WIDTH 13.8 % (11.6-17.2); WHITE BLOOD COUNT 9.1 TH/MM3 (4.0-11.0)
[2017-07-31] MEDS ORDERED: MAGNESIUM SULFATE 40 GM PREMIX 1,000 ML IV SCH (14:45)
[2017-07-31] MEDS: LACTATED RINGER'S 1000 ML INJ 1,000 ML IV SCH (14:58)
[2017-07-31 15:04] LABS: ALBUMIN 2.6 GM/DL (3.4-5.0); ALT (GPT) 53 U/L (10-53); AST (GOT) 24 U/L (15-37); BICARBONATE 24.5 MEQ/L (21.0-32.0); BLOOD UREA NITROGEN 13 MG/DL (7-18); CALCIUM 8.9 MG/DL (8.5-10.1); CHLORIDE 113 MEQ/L (98-107); CREATININE 0.51 MG/DL (0.50-1.00); GLOMERULAR FILTRATION RATE 145 ML/MIN (>89); GLUCOSE,RANDOM 84 MG/DL (74-106); SODIUM (NA) 144 MEQ/L (136-145)
[2017-07-31 15:07] LABS: ALKALINE PHOSPHATASE 102 U/L (45-117); TOTAL BILIRUBIN ADULT 0.5 MG/DL (0.2-1.0); TOTAL PROTEIN 6.2 GM/DL (6.4-8.2)
[2017-07-31] MEDS ORDERED: oxyCODONE/ACETAMINOPHEN 5 MG/325 MG TAB PO PRN ×2 (15:15)
[2017-07-31] MEDS ORDERED: IBUPROFEN 600 MG TAB PO PRN (15:15)
[2017-07-31] MEDS: NIFEdipine 30 MG SUSTAINED RELEASE TAB PO SCH (15:55)
[2017-07-31] MEDS: SODIUM CHLORIDE 0.9% FLUSH 10 ML FLUSH IV FLUSH SCH (21:00)
[2017-07-31] MEDS ORDERED: SODIUM CHLORIDE 0.9% FLUSH 10 ML FLUSH IV FLUSH SCH ×2 (21:00)
[2017-07-31] MEDS ORDERED: ZOLPIDEM TARTRATE 5 MG TAB PO PRN (21:00)
[2017-08-01] VITALS (17 sets, daily range): BP systolic 115–147; BP diastolic 61–88; PULSE 88–113; RESP 14–16; TEMP 97.5–97.9
[2017-08-01] MEDS: LACTATED RINGER'S 1000 ML INJ 1,000 ML IV SCH (03:57)
[2017-08-01] MEDS: SODIUM CHLORIDE 0.9% FLUSH 10 ML FLUSH IV FLUSH SCH (08:40)
--- NOTE | 2017-08-01 08:45 | HHI.OB ---
Subjective Remarks Patient doing fairly well, states she has a headache, it worsened acutely and change in quality after starting her magnesium, she denies any visual changes, right upper quadrant pain. Otherwise abdominal pain is well controlled, no vaginal bleeding. Objective Vitals/I&O Vital Signs Date Time Temp Pulse Resp B/P (MAP) Pulse Ox O2 Delivery O2 Flow Rate FiO2 08/01/17 08:00 16 08/01/17 07:58 112 142/87 (105) 08/01/17 07:00 94 129/71 (90) 08/01/17 06:27 14 08/01/17 06:00 95 122/67 (85) 08/01/17 05:59 14 08/01/17 05:00 16 08/01/17 05:00 94 139/82 (101) 08/01/17 04:00 97 134/83 (100) 08/01/17 03:54 97.5 14 08/01/17 03:00 88 127/66 (86) 08/01/17 03:00 14 08/01/17 02:00 99 15 119/72 (88) 08/01/17 01:00 93 115/61 (79) 08/01/17 00:33 16 08/01/17 00:00 102 135/73 (93) 08/01/17 00:00 97.9 07/31/17 23:41 14 07/31/17 23:00 83 125/67 (86) 07/31/17 22:37 15 07/31/17 22:30 91 141/87 (105) 07/31/17 22:00 87 128/86 (100) 07/31/17 21:53 99 07/31/17 21:53 16 07/31/17 21:30 86 133/87 (102) 07/31/17 21:01 101 106/60 (75) 07/31/17 21:00 15 07/31/17 20:30 99 147/95 (112) 07/31/17 20:00 106 141/93 (109) 07/31/17 19:45 98.0 16 07/31/17 19:42 105 139/88 (105) 07/31/17 19:30 106 142/96 (111) 07/31/17 19:01 98 129/84 (99) 07/31/17 18:30 108 142/88 (106) 07/31/17 18:00 108 142/94 (110) 07/31/17 17:42 18 07/31/17 17:33 102 131/89 (103) 07/31/17 17:00 110 108/85 (93) 07/31/17 16:39 18 07/31/17 16:30 99 132/79 (96) 07/31/17 16:15 98 132/79 (96) 07/31/17 12:18 87 144/78 (100) Result Diagram: 07/31/17 1406 07/31/17 1406 Objective Remarks GENERAL: Well-nourished, well-developed patient. CARDIOVASCULAR: Regular rate and rhythm without murmurs, gallops, or rubs. RESPIRATORY: Breath sounds equal bilaterally. No accessory muscle use. ABDOMEN/GI: Abdomen soft, non-tender, bowel sounds present. Incision: Clean, dry and intact. Fundus: Firm, non-tender at umbilicus. GENITOURINARY: Light to moderate bleeding. EXTREMITIES: No cyanosis or edema, non-tender, without signs of DVT. SCDs on bilaterally, patellar DTRs 2-3+. Medications and IVs Current Medications Medications (Trade) Dose Ordered Sig/Prachi Route Start Time Stop Time Status Last Admin (Tylenol) 650 mg Q4H PRN PO 07/31/17 14:15 07/31/17 19:43 (Stuartnatal Plus 3 ) 1 tab DAILY PO 08/01/17 09:00 (Colace) 100 mg DAILY PO 08/01/17 09:00 (Mag-Al Plus Susp Liq) 30 ml QID PRN PO 07/31/17 14:15 (NS Flush) 2 ml BID IV FLUSH 07/31/17 21:00 (NS Flush) 2 ml UNSCH PRN IV FLUSH 07/31/17 14:15 (Ambien) 5 mg HS PRN PO 07/31/17 21:00 Lactated Ringer's 1,000 ml @ 75 mls/hr [id number] IV 07/31/17 14:30 08/01/17 15:00 08/01/17 03:57 (NS Flush) 2 ml BID IV FLUSH 07/31/17 21:00 Magnesium Sulfate 1,000 ml @ 50 mls/hr Q20H IV 07/31/17 14:45 08/01/17 15:00 07/31/17 15:03 (Calcium Gluconate Inj) 1 gm UNSCH PRN IV PUSH 07/31/17 14:15 (Procardia Xl) 30 mg DAILY PO 07/31/17 15:00 07/31/17 15:55 (Tylenol) 650 mg Q6H PRN PO 07/31/17 15:15 (Motrin) 600 mg Q6H PRN PO 07/31/17 15:15 07/31/17 17:46 (Percocet 5-325 Mg) 1 tab Q4H PRN PO 07/31/17 15:15 07/31/17 22:34 (Percocet 5-325 Mg) 2 tab Q4H PRN PO 07/31/17 15:15 (Zofran Inj) 4 mg Q6H PRN IV PUSH 07/31/17 15:15 Assessment/Plan Assessment and Plan 26-year-old here is a readmission for preeclampsia, she is postoperative day #7 status post primary LTC S for nonreassuring heart tones at 37 weeks. Was a failed induction secondary to preeclampsia. 1. Preeclampsia with severe features: HELLP labs within normal limits, blood pressures mostly normotensive some mild range status post starting Procardia 30 XL yesterday, continue this, headache acutely worsened after starting magnesium for seizure prophylaxis, based on clinical picture feel appropriate to discontinue magnesium as a trial and will give Fioricet to treat her headache. If headache persists despite cessation will restart magnesium, if blood pressure still well controlled and headache resolve this afternoon may be candidate for discharge home otherwise observation till tomorrow morning. - urine output appropriate. Luis Gustafson MD Aug 01, 2017 08:45
[2017-08-01] MEDS ORDERED: NIFE1TAB85 PO (08:46)
--- NOTE | 2017-08-01 08:48 | HHI.DS ---
Admission Date Jul 31, 2017 at 14:17 Discharge Date: Aug 01, 2017 Admitting Diagnosis 1. preeclampsia with severe features Diagnosis: Brief History 26-year-old who presented on POD / PPD #6 with complaints of elevated BPs at home, worsening bilateral LE swelling and intermittent headaches. Upon arrival she had severe range BPs and was diagnosed with preeclampsia with severe features based on her blood pressures and a P:C of > 0.3. She was treated with PO Procardia and started on magnesium for seizure ppx, her blood pressures after presentation were maintained in the normotensive with mild range with 30mg Procardia XL daily, magnesium was continued until the following morning, she had a persistent worsening headache after initiation of her magnesium and it was felt to be related to the medication itself, her swelling significantly improved and she had significant diuresis. At time of discharge pt was instructed on checking her BPs at home and precautions of when to return to hospital, she had plans for outpatient follow up the coming week. Pt Condition on Discharge: Good Discharge Disposition: Discharge Home Discharge Instructions Diet Instructions: As Tolerated, No Restrictions Activities You Can Perform: Regular-No Restrictions Activities to Avoid: Lifting/Bending, Strenuous Activity, Sexual Activity Follow up Referrals: [facility] - 1 Week @ [facility] New Medications: Nifedipine ER 24 HR (Procardia XL) 30 Mg Tab 30 MG PO DAILY for Blood Pressure Management, #30 TAB 2 Refills Continued Medications: Ibuprofen (Ibuprofen) 600 Mg Tab 600 MG PO Q6H PRN for CRAMPING, #30 TAB Oxycodone HCl/Acetaminophen (Oxycodone-Acetaminophen 5-325) 5 Mg-325 Mg Tablet 1-2 TAB PO Q4H PRN for moderate pain, #30 TAB Luis Gustafson MD Aug 01, 2017 08:48
[2017-08-01] MEDS ORDERED: DOCUSATE SODIUM 100 MG CAP PO SCH (09:00)
[2017-08-01] MEDS ORDERED: MULTIVIT/MIN/PREN/FOL AC/IRON PRENATAL TAB PO SCH (09:00)
[2017-08-01] MEDS ORDERED: ACETAMIN 325 MG/BUTALBITAL 50 MG/CAFFEINE 40 MG TAB PO ONE (09:00)
[2017-08-01] MEDS: NIFEdipine 30 MG SUSTAINED RELEASE TAB PO SCH (09:05)
== END 2017-08-01 18:26 | disposition home or self-care (01) | DRG 776 ==
LOC: HOBED 11:49 → H2EA 14:17 → OBSVTOIN 15:00
PROVIDERS: ADMIT Obstetrics & Gynecology; ATTEND Obstetrics & Gynecology
DX: O14.15 Severe pre-eclampsia, complicating the puerperium (principal)
CPT/HCPCS: 80053; 80307; 82570; 84156; 84550; 85025; 99285; G0481; J3475; J7120